=== PATIENT | male | born 2000 | race Caucasian/White ===

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

== ENCOUNTER 2018-04-09 00:26 | Emergency (ER) | payer OTHER ==
[~2018-04-09] VITALS: Ht 180.3 cm; Wt 59.9 kg
[~2018-04-09 00:26] MED LIST changes: +NAPR550 PO; +Norco 5-325 Ta1 EACH PO
[2018-04-09] MEDS ORDERED: VENL37.5ER PO (01:20)
[2018-04-09] MEDS ORDERED: Veetids 500500 MG PO (02:19)
== END 2018-04-09 02:40 | disposition home or self-care (01) ==
LOC: ER 00:26
DX: K02.9 Dental caries, unspecified (principal); Z79.899 Other long term (current) drug therapy; Z87.891 Personal history of nicotine dependence
CPT/HCPCS: 96372; 99282-25; J1885

== ENCOUNTER → 2018-04-26 | Outpatient (CLI) | payer OTHER ==
[~2018-04-26] MED LIST changes: +VENL37.5ER PO; +Veetids 500500 MG PO
[2018-04-26 11:12] LABS: BASOPHILS ABSOLUTE AUTO 0.02 K/mm3 (0.00-0.23); BASOPHILS PERCENT AUTO 0 % (0-2); EOSINOPHILS PERCENT AUTO 3 % (0-6); Hematocrit 42.1 % (37.0-53.0); Hemoglobin 14.5 g/dL (13.5-17.5); IMMATURE GRAN ABSOLUTE AUTO 0.01 K/mm3 (0.00-0.10); IMMATURE GRAN PERCENT AUTO 0 % (0-1); LYMPHOCYTES ABSOLUTE AUTO 1.45 K/mm3 (0.84-5.20); LYMPHOCYTES PERCENT AUTO 22 % (21-46); MONOCYTES ABSOLUTE AUTO 0.62 K/mm3 (0.16-1.47); MONOCYTES PERCENT AUTO 10 % (4-13); Mean Corpuscular HGB 29.6 pg (26.0-34.0); Mean Corpuscular HGB Conc 34.4 g/dL (31.5-36.5); Mean Corpuscular Volume 86 fL (80-100); Mean Platelet Volume 9.3 fL (9.1-12.4); NEUTROPHILS ABSOLUTE AUTO 4.25 K/mm3 (1.96-9.15); NEUTROPHILS PERCENT AUTO 65 % (41-73); Platelet Count 296 K/mm3 (150-400); RDW Coefficient Variation 12.3 % (11.7-14.2); RDW Standard Deviation 38.5 fL (35.1-46.3); White Blood Cell Count 6.55 K/mm3 (4.00-11.30)
[2018-04-26 11:31] LABS: Anion Gap 9 mmol/L (6-16); Blood Urea Nitrogen 7 mg/dL (8-24); Bun/Creatinine Ratio 7.9 (12.0-20.0); CO2, Blood 29 mmol/L (21-32); Chloride, Blood 102 mmol/L (98-108); Creatinine, Blood 0.89 mg/dL (0.60-1.20); Glomerular Filtration Rate >60 (60-); Glucose, Blood 87 mg/dL (70-99); Sodium, Blood 140 mmol/L (136-145); Thyroid Stimulating Hormone 1.231 uIU/mL (0.360-4.800)
[2018-04-26 11:33] LABS: Troponin I <0.015 ng/mL (0.000-0.040)
== END ==
LOC: LAB EV 11:08 → LAB SHORT 11:08
PROVIDERS: Physician Assistant Surgical
DX: R07.9 Chest pain, unspecified (principal)
CPT/HCPCS: 80048; 84443; 84484; 85025